=== PATIENT | female | born 2000 | race Caucasian/White ===

== ENCOUNTER 2024-07-04 19:57 | Emergency (ER) | payer OTHER, SELFPAY ==
[2024-07-04 21:00] VITALS: BP 108/74; PULSE 74; RESP 20; TEMP 36.6; O2SAT 100
[2024-07-04] MEDS: LIDOCAINE HCL 1% LOCAL INJ 10 ML VIAL INFILTRATE (22:36)
[2024-07-04] MEDS: TETANUS,DIPHTHERIA,AC PERTUSSIS ADULT (0.5 ML) BOOSTRIX IM (22:36)
--- NOTE | 2024-07-04 23:10 | ED.GENADULT ---
HPI - General Adult General Chief complaint: Wound/Laceration Stated complaint: laceration Time Seen by Provider: 07/04/24 21:35 History of Present Illness HPI narrative: Patient is a 23-year-old female who presents to the emergency department this evening after cutting her left thumb with a boxing promoter accidentally. Patient does not know if her tetanus shot is up-to-date and believes that it is not. Denies any additional injuries or symptoms. Patient initially went to an urgent care and was sent here and told at the Urgent Care closes in 15 minutes. No additional symptoms or concerns at this time. Related Data Home Medications Medication Instructions Recorded Confirmed No Home Medications 07/04/24 07/04/24 Allergies Allergy/AdvReac Type Severity Reaction Status Date / Time cefdinir Allergy Hives Verified 07/04/24 21:25 Sulfa (Sulfonamide Allergy Vomiting Verified 07/04/24 21:25 Antibiotics) Review of Systems Review of Systems: All systems are reviewed and are negative unless stated otherwise in the HPI. Exam Narrative: General: Alert, awake, afebrile, in no acute distress. HEENT: PERRL, no rhinorrhea, no post nasal drip, oropharynx clear. Cardiovascular: Regular rate and rhythm, no murmurs, rubs or gallops, no peripheral edema. Respiratory: Clear to auscultation bilaterally, no tachypnea, no wheezing, no rhonchi, no rubs, no respiratory distress. Abdomen: Soft, nontender, nondistended, no rebound, no guarding, no peritoneal signs. Musculoskeletal: No joint swelling or deformity, normal muscle tone. Skin: 2 cm superficial linear laceration to the medial aspect of left thumb. Neurological: Alert and oriented to person, place, and time. Follows all commands. No focal deficits, speech is clear and fluent. Course Vital Signs Vital signs: Vital Signs Temperature 97.9 F 07/04/24 21:00 Pulse Rate 74 07/04/24 21:00 Respiratory Rate 20 07/04/24 21:00 Blood Pressure 108/74 07/04/24 21:00 Pulse Oximetry 100 07/04/24 21:00 Oxygen Delivery Room Air 07/04/24 21:00 Temperature 97.9 F 07/04/24 21:00 Pulse Rate 74 07/04/24 21:00 Respiratory Rate 20 07/04/24 21:00 Blood Pressure 108/74 07/04/24 21:00 Pulse Oximetry 100 07/04/24 21:00 Oxygen Delivery Room Air 07/04/24 21:00 Procedures Laceration Laceration 1: Date: 07/04/24 Time: 23:11 Site: hand Side (If applicable): left Size (cm): 2 Description: linear Depth: simple, single layer Local Anesthetic: lidocaine 1% Amount of anesthesia used (mL): 1 Pre-repair: wound explored, irrigated, deep structures intact and wound margins revised ====== Skin Level ====== Skin layer closed with: dermabond ====== Subcutaneous Layer ====== ====== Muscle Layer ====== ====== Tendon Layer ====== Medical Decision Making MDM Narrative Medical decision making narrative: The patient was evaluated by myself in the emergency department. History is obtained from patient who is an independent historian and physical exam was performed. External medical records were reviewed at this time. Patient's tetanus shot was updated at this. Differential diagnosis considerations include laceration vs abrasion. Comorbidities impacting this visit include none. I have evaluated and discussed social determinants of health with the patient that could potentially impact subsequent diagnosis and treatment plans. On repeat assessment of the patient, reevaluation revealed that the patient is doing well and is in no acute distress. Patient symptoms have improved since she arrived to our emergency department. Repeat vital signs were all reviewed and noted to be stable. Differential diagnosis and treatment plan were discussed with the patient at bedside. Patient agrees with discussion and after shared medical decision making agrees with discharge. Mauricio michel
[2024-07-05 00:48] VITALS: BP 135/74; PULSE 87; RESP 16; TEMP 36.6; O2SAT 99
== END 2024-07-05 00:50 | disposition home or self-care (01) ==
PROVIDERS: Emergency Provider Emergency Medicine
DX: S61.012A Laceration without foreign body of left thumb without damage to nail, initial encounter (principal); Z23 Encounter for immunization; W26.9XXA Contact with unspecified sharp object(s), initial encounter
CPT/HCPCS: 12001; 90471; 90715; 99282